=== PATIENT | female | born 1995 | race Caucasian/White ===

== ENCOUNTER 2016-09-08 00:34 | Inpatient (IN) ==
[2016-09-08] MEDS ORDERED: SODIUM CHLORIDE 0.9% 2,000 ML IV STA (00:54)
[2016-09-08] MEDS ORDERED: LORazepam 2 MG/1 ML VIAL IV STA (00:54)
[2016-09-08] MEDS ORDERED: diphenhydrAMINE 50 MG/1 ML VIAL IV STA (00:55)
[2016-09-08 01:08] LABS: Basophils # 0.1 10*3/uL (0.0-0.2); Basophils % 0.4 % (0.0-0.8); Eosinophils % 0.2 % (0.00-10.9); Hematocrit 46.8 VOL% (35.7-47.0); Hemoglobin 16.3 GM/DL (12.0-16.0); Immature Granulocytes % 0.4 %; Immature Granulocytes Absolute 0.05 #; Lymphocytes # 2.8 10*3/uL (1.4-4.0); Lymphocytes % 19.3 % (21.3-54.2); Mean Corpuscular HGB Conc 34.8 GM/DL (32-36); Mean Corpuscular Hemoglobin 29 PG (27-34); Mean Corpuscular Volume 82.1 FL (87-102); Mean Platelet Volume 8.6 FL (9.6-12.0); Monocytes # 0.7 10*3/uL (0.11-0.8); Monocytes % 4.7 % (1.7-12.7); Neutrophils # 10.7 10*3/uL (1.4-7.4); Platelet Count 425 T/CUMM (130-400); Red Cell Distribution Width 12.1 % (9.3-17.3); White Blood Count 14.3 T/CUMM (4-12)
[2016-09-08] MEDS ORDERED: diphenhydrAMINE 50 MG/1 ML VIAL ONE (01:21)
[2016-09-08] MEDS ORDERED: LORazepam 2 MG/1 ML VIAL ONE (01:21)
[2016-09-08 01:22] LABS: Albumin 5.1 G/DL (3.4-5.0); Bilirubin,Total 1.4 MG/DL (0.2-1.0); Calcium 10.4 MG/DL (8.5-10.1); Osmolality,Calculated 282.3 MOS/KG (273-304); Potassium 3.4 MMOL/L (3.5-5.1); Total Protein 9.8 G/DL (6.4-8.3)
[2016-09-08 01:37] LABS: Apearance,Urine CLOUDY (Clear); Bacteria,Urine Many /HPF (Few); Bilirubin,Urine Negative (Negative); Blood, Urine Small mg/dL (Negative); Glucose,Urine (UA) Negative (Negative); Ketones,Urine 20 mg/dL (Negative); Mucus,Urine Many /LPF (Occasional); Nitrite,Urine Positive (Negative); Protein,Urine 100 MG/DL; RBC,Urine 40 /HPF (0-4); Squamous Epithelial Cell,Urine Few /HPF (0-10); Urine Color Amber (Yellow); Urine Specific Gravity 1.024 (1.001-1.035); Urine Urobilinogen < 2.0 EU/DL (0.2-1.0); WBC,Urine 3261 /HPF (0-6)
[2016-09-08] MEDS ORDERED: ZIPRASIDONE 20 MG/1 ML VIAL IM ONE ×2 (02:05→03:10)
[2016-09-08 02:19] LABS: Barbiturates Screen,Urine Negative (Negative); Benzodiazepines Screen,Urine Negative (Negative); Cannabinoid Screen,Urine Positive (Negative); Opiate Screen,Urine Positive (Negative); Phencyclidine Screen,Urine Negative (Negative)
[2016-09-08] MEDS ORDERED: MIDAZOLAM 10 MG/2 ML VIAL ONE ×2 (02:30→04:25)
[2016-09-08] MEDS ORDERED: MIDAZOLAM 10 MG/2 ML VIAL IM STA ×2 (03:11→04:23)
[2016-09-08] MEDS ORDERED: cefTRIAXone 1,000 MG in SODIUM CHLORIDE 0.9% 100 ML IV STA (04:25)
[2016-09-08] MEDS ORDERED: cefTRIAXone 1,000 MG VIAL ONE ×2 (04:29→10:19)
--- NOTE | 2016-09-08 06:22 | Emergency Department Note ---
Sabiha Fletcher Sierra, am scribing for, and in the presence of, Sushma Santos DO 01:12. ITom Catherine, DO, personally performed the services described in this documentation, ascribed by Jania Landis in my presence, and it is both accurate and complete 622 . Arrival - Arrival ED Nursing Triage Note: C/O Generalized abd pain/nausea/vomiting- Onset lastnight. Pt reports that she is a daily heroin user and last used approx 0600 yesterday morning. Pt has very dilated pupils approx 8mm. Pt is hyperventilating and has dry mucous membranes. Pt reports taking [place] that wasn't prescribed to her yesterday as well. Mode of Arrival: Stretcher Limitations: Altered Mental Status, Uncooperative Source: Patient - History of Present Illness Onset (ago): hour(s) Consistency: constant Severity: moderate Severity scale (1-10): 5 Quality: other Date of Last Menstrual Period: "Its been months" <Sushma Santos - Last Filed: 09/08/16 06:18> <Ivan Batres - Last Filed: 09/08/16 07:42> - Arrival Chief Complaint: Nausea/Vomiting/Diarrhea Time Seen by Provider: 09/08/16 00:38 - History of Present Illness HPI Narrative: Pt is a 21 y/o female that was brought to the ED via EMS with c/o abdominal pain that began a few hours ago. Pt has associated sxs of "shaking all over," N/ V, "hard to breathe," woke up "freaking out," and chills. Pt admits she does heroin, dilaudid, xanax, and [place] that she buys off the street. Pt states she administers heroin intravenous daily and when asked where states "anywhere." She agrees with doctor when doctor suggests sxs are a drug withdrawal. Pt reports her last use of any drug was yesterday morning. Pt states she has not used to do not having any available drugs. Pt reports she has been using for "about a year." Pt states her last known menstrual period was "couple months ago " but denies possibility of . Pt reports she does smoke a 1/2 a pack of cigarettes a day. Pt denies previously trying rehab for drug use. Pt denies medical history, medications, or allergies. Pt has a PSHx of appendectomy, tonsillectomy, and adenoidectomy. No other complaints/pain in ED. (Jania Landis) Pt is a 21 y/o female that was brought to the ED via EMS with c/o abdominal pain that began a few hours ago. Pt has associated sxs of "shaking all over," N/ V, "hard to breathe," woke up "freaking out," and chills. Pt admits she does heroin, dilaudid, xanax, and [place] that she buys off the street. Pt states she administers heroin intravenous daily and when asked where states "anywhere." She agrees with doctor when doctor suggests sxs are a drug withdrawal. Pt reports her last use of any drug was yesterday morning. Pt states she has not used to do not having any available drugs. Pt reports she has been using for "about a year." Pt states her last known menstrual period was "couple months ago " but denies possibility of . Pt reports she does smoke a 1/2 a pack of cigarettes a day. Pt denies previously trying rehab for drug use. Pt denies medical history, medications, or allergies. Pt has a PSHx of appendectomy, tonsillectomy, and adenoidectomy. No other complaints/pain in ED. (Sushma Santos) Allergies/Adverse Reactions: Allergies Allergy/AdvReac Type Severity Reaction Status Date / Time No Known Allergies Allergy Verified 09/08/16 00:48 Home Medications: Home Medications Medication Instructions Recorded Confirmed Type No Known Home Medications [No 09/08/16 09/08/16 History Known Home Medications] Review of System - Review of System 12 point system: reviewed and no additional remarkable complaints except as stated - Review of System Constitutional: Present: chills, other ("shaking all over"; "woke up freaking out"). Absent: fever Respiratory: Present: other ("hard to breathe"). Absent: cough Cardiovascular: Absent: chest pain Gastrointestinal: Present: abdominal pain, nausea, vomiting Musculoskeletal: Absent: arm pain, back pain, leg pain, neck pain Skin: Absent: rash Neurological: Absent: headache <Sushma Santos - Last Filed: 09/08/16 06:18> Medical,Surgical,& Family Hx - Medical History Other: History of: Miscellaneous Medical Problems (Drug abuser) - Social History Smoking Status: Never smoker Frequency of Alcohol Use: None Type of Drug Use: Heroin, Prescription Drug Abuse <Sushma Santos - Last Filed: 09/08/16 06:18> Exam - General General appearance: alert, anxious - Head Head exam: Present: atraumatic, normocephalic - Eye Eye exam: Present: EOMI. Absent: PERRL (pupils are dilated to approximately 8 mm) - ENT ENT exam: Present: mucous membranes moist. Absent: mucous membranes dry - Neck Neck exam: Present: full ROM. Absent: tenderness - Chest Chest inspection: Present: symmetric chest wall rise. Absent: tenderness - Respiratory Respiratory exam: Present: normal lung sounds bilaterally, other ( hyperventilating). Absent: respiratory distress - Cardiovascular Cardiovascular exam: Present: regular rate, normal rhythm, normal heart sounds - Abdominal Exam Abdominal exam: Present: soft, tenderness (diffusely tender abdomen). Absent: guarding, rebound - Extremities Exam Extremities exam: Present: full ROM. Absent: tenderness - Back Exam Back exam: Present: full ROM. Absent: tenderness - Neurological Exam Neurological exam: Present: alert, oriented X3, CN II-XII intact. Absent: motor sensory deficit - Psychiatric Psychiatric exam: Present: normal affect, anxious - Skin Skin exam: Present: warm, dry <Sushma Santos - Last Filed: 09/08/16 06:18> Vital Signs: Vital Signs Temperature 99.8 F H 09/08/16 00:34 Pulse Rate 127 H 09/08/16 00:45 Respiratory Rate 16 09/08/16 07:18 Blood Pressure 128/85 09/08/16 00:45 O2 Sat by Pulse Oximetry 100 09/08/16 00:45 Course <Sushma Santos - Last Filed: 09/08/16 06:18> - Consultations Time: 06:41 <Ivan Batres - Last Filed: 09/08/16 07:42> Course Narrative: This is a 21-year-old female who presents into the ER today and some type of drug withdrawal. She states that she does use heroin and other drugs on a daily basis. She reports that she is from [place] she came down to [place] to visit and her friends and family apparently left her. She was found by EMS and brought to the hospital. She stated she called 911 because she was not feeling well. She is aching all over and having nausea and vomiting. Arrival in the ER the patient is obviously on some type of substances. She is able to answer my questions that she is hallucinating and seeing things she is noted to have extremely large pupils. She will cooperate however she has episodes where she becomes combative. History is limited due to her state at this time. Physical exam her vital signs were stable she is afebrile H HEENT exam is normal her neck was supple heart had a regular rate and rhythm lungs are clear in the anterior wiggins. Her pupils are markedly dilated. Her abdomen is rounded soft and nontender. She is complaining of nausea and vomiting. Her neurologic exam she really does not have focal deficits she just appears to be suffering from some type of an overdose at this time. Treatment initially the patient was somewhat cooperative I did start an IV and attempted to hydrate her she received some Ativan and Benadryl. She then became combative and refused to stay in the bed. She was sedated with 10 mg of Geodon and 10 mg of Versed IM. She was sleeping at times. She would wake up and yellow. Her mother had called the ER several times concerned about her and wanting to know what to do. Her toxicology screen was positive for methamphetamines amphetamines marijuana cocaine and opiates. At this time I have turned the patient over to Dr. MAIET Elder. The plan will be to admit the patient for further evaluation and treatment of her drug addiction. (Sushma Santos) - Consultations Consultation #1: Discussed with hospitalist. Patient will be admitted to their service. (Ivan Batres) Procedures - ABG Interpretation ABG Interpretation 1 Interpretation: normal - EJ/Peripheral Line Neck R Consent Obtained: verbal consent Time Out Performed: Yes Skin Cleansed in Sterile Fashion: Yes Size: 20 IV Secured and Dressing Applied: Yes Patient Tolerated Procedure: well - Intubation Time out performed: Yes sedative: Etomidate Mg Given: 20 paralytic: Vecuronium Mg Given: 10 Laryngoscope: fiber optic video scope ET Tube Size: 7.5 ET Tube Uncuffed: No Tube Secured Depth (cm): 23 Tube Secured Location: lips Tube Placement Confirmation: visualized tube passing through cords, equal breath sounds bilaterally, no breath sounds over epigastrium, confirmation detector color change Patient Tolerated Procedure: well Intubation Complications: none <Ivan Batres - Last Filed: 09/08/16 07:42> Results - Labs CBC & BMP: 09/08/16 00:50 09/08/16 00:50 Lab Results: I have reviewed the patients labs <Sushma Santos - Last Filed: 09/08/16 06:18> - Labs CBC & BMP: 09/08/16 00:50 09/08/16 00:50 Lab Results: I have reviewed the patients labs - Diagnostic Findings Procedure: Chest x-ray: image reviewed by me (Endotracheal tube in good position above the jose. No infiltrates, no pleural effusions.) <Ivan Batres - Last Filed: 09/08/16 07:42> - Labs Labs: Laboratory Tests 09/08/16 09/08/16 00:50 00:50 WBC 14.3 H RBC 5.70 H Hgb 16.3 H MCV 82.1 L Plt Count 425 H MPV 8.6 L Neut % (Auto) 75.0 H Lymph % (Auto) 19.3 L Neut # (Auto) 10.7 H Potassium 3.4 L Carbon Dioxide 19 L Anion Gap 19.4 H Creatinine 1.20 H Glucose 117 H Calcium 10.4 H Total Bilirubin 1.40 H Total Protein 9.8 H Albumin 5.1 H Globulin 4.7 H Albumin/Globulin Ratio 1.0 L Laboratory Tests 09/08/16 01:25 Urine Color Cindy Urine Appearance Cloudy Urine pH 5.0 Ur Specific [place] 1.024 Urine Protein 100 Urine Glucose (UA) Negative Urine Ketones 20 Urine Blood Small Urine Nitrate Positive H Urine Bilirubin Negative Urine Urobilinogen < 2.0 H Urine Leukocytes Moderate H Urine RBC 40 Urine WBC 3261 Ur Squamous Epith Cells Few Urine Bacteria Many Urine Mucus Many Urine Test Negative Laboratory Tests 09/08/16 01:25 Urine Opiates Screen Positive H Ur Barbiturates Screen Negative Ur Phencyclidine Scrn Negative U Amphetamine/Methamph Positive H U Benzodiazepines Scrn Negative U Cocaine Metab Screen Positive H U Cannabinoids Screen Positive H (Jania Landis) Laboratory Tests 09/08/16 09/08/16 00:50 00:50 WBC 14.3 H RBC 5.70 H Hgb 16.3 H MCV 82.1 L Plt Count 425 H MPV 8.6 L Neut % (Auto) 75.0 H Lymph % (Auto) 19.3 L Neut # (Auto) 10.7 H Potassium 3.4 L Carbon Dioxide 19 L Anion Gap 19.4 H Creatinine 1.20 H Glucose 117 H Calcium 10.4 H Total Bilirubin 1.40 H Total Protein 9.8 H Albumin 5.1 H Globulin 4.7 H Albumin/Globulin Ratio 1.0 L Laboratory Tests 09/08/16 01:25 Urine Color Cindy Urine Appearance Cloudy Urine pH 5.0 Ur Specific [place] 1.024 Urine Protein 100 Urine Glucose (UA) Negative Urine Ketones 20 Urine Blood Small Urine Nitrate Positive H Urine Bilirubin Negative Urine Urobilinogen < 2.0 H Urine Leukocytes Moderate H Urine RBC 40 Urine WBC 3261 Ur Squamous Epith Cells Few Urine Bacteria Many Urine Mucus Many Urine Test Negative Laboratory Tests 09/08/16 01:25 Urine Opiates Screen Positive H Ur Barbiturates Screen Negative Ur Phencyclidine Scrn Negative U Amphetamine/Methamph Positive H U Benzodiazepines Scrn Negative U Cocaine Metab Screen Positive H U Cannabinoids Screen Positive H (Sushma Santos) Laboratory Tests 09/08/16 06:40 ABG pH 7.408 ABG pCO2 31.8 L ABG pO2 303.0 H ABG HCO3 21.6 ABG Total CO2 17.2 L ABG O2 Saturation 99.8 ABG Base Excess -3.5 L FiO2 60.00 (Ivan Batres) Disposition <Sushma Santos - Last Filed: 09/08/16 06:18> <Ivan Batres - Last Filed: 09/08/16 07:42> Clinical Impression: Drug abuse and dependence, Polysubstance overdose, Urinary tract infection Disposition: Still a Patient Condition: Guarded
[2016-09-08] MEDS ORDERED: VECURONIUM 10 MG VIAL IV ONE ×6 (06:28→12:23)
[2016-09-08] MEDS ORDERED: ETOMIDATE 20 MG/10 ML VIAL IV ONE ×2 (06:28→06:30)
[2016-09-08] MEDS ORDERED: SUCCINYLCHOLINE 200 MG/10 ML VIAL ONE (06:29)
[2016-09-08] MEDS ORDERED: MIDAZOLAM 2 MG/2 ML VIAL IV STA ×2 (06:30→07:26)
[2016-09-08] MEDS ORDERED: VECURONIUM 10 MG VIAL IV STA ×4 (06:44→10:52)
[2016-09-08] MEDS ORDERED: SUCCINYLCHOLINE 200 MG/10 ML VIAL IV STA (06:44)
[2016-09-08 06:47] LABS: ABG Base Excess -3.5 MMOL/L (-2.5-2.5); ABG HCO3 21.6 MMOL/L (20-26); ABG Oxygen Saturation 99.8 % (95-100); ABG PCO2 31.8 MM HG (35-48); ABG PH 7.408 (7.35-7.45); ABG TCO2 17.2 MMOL/L (23-27); Allen Test Positive; Pt O2 Delivery Device Ventilator
--- NOTE | 2016-09-08 07:02 | XRay Report ---
XR chest 1V portable Indication: Intubation Comparison: None available Findings: The heart and mediastinum are normal in size and configuration. Endotracheal tube is present with tip at the clavicle level. The pulmonary vascularity is normal in caliber. No lung infiltrates, effusions, pneumothorax or other abnormality is demonstrated. Impression: Tube position appears within normal limits. No other significant findings seen. PROCEDURE INTERPRETED AT [facility] DEPARTMENT OF RADIOLOGY Final Report Signed by: Dr. John Forbes
--- NOTE | 2016-09-08 07:03 | CT Report ---
CT brain Indication: Agitation Comparison: None available Technique: Axial CT imaging of the brain is performed without contrast with 3 mm increments. Findings: No evidence of hemorrhage, mass mass effect midline shift or acute infarct seen. The brain parenchyma attenuation and differentiation appears within normal limits. The ventricles and cisterns are normal in caliber. No cranial or skull base abnormality is identified. Impression: No evidence of abnormality demonstrated. This CT exam was performed using one or more the following dose reduction techniques: Automated exposure control, adjustment of the MA and/or KV according to patient size, or use of iterative reconstruction technique. PROCEDURE INTERPRETED AT [facility] DEPARTMENT OF RADIOLOGY Final Report Signed by: Dr. John Forbes
[2016-09-08] MEDS ORDERED: MIDAZOLAM 2 MG/2 ML VIAL ONE (07:23)
[2016-09-08] MEDS: MIDAZOLAM 100 MG in SODIUM CHLORIDE 0.9% 80 ML IV SCH (07:36)
[2016-09-08] MEDS ORDERED: SODIUM CHLORIDE 0.9% 500 ML IV STA (07:37)
--- NOTE | 2016-09-08 08:57 | Hospitalist History & Physical ---
<Alicia Hamlin - Last Filed: 09/08/16 08:54> Assessment and Plan - Time spent with patient Time spent with patient: Greater than 30 minutes (1) Drug abuse and dependence Status: Acute Assessment and plan: 21-year-old white female admitted with polysubstance overdose and urinary tract infection. Patient is now sedated on the vent. She is being admitted to ICU under the care of Dr. Becerril. We will also consult pulmonary for ventilator management. This is all been discussed with Dr. Becerril. Further recommendations to follow. Polysubstance abuse--admit to ICU, and monitor for withdrawal. We will start banana bag IV drip. We will go ahead and get case management to start working on possible alliance when patient is awake and alert. Urinary tract infection--start Rocephin Current Visit: Yes (2) Polysubstance overdose Status: Acute Current Visit: Yes (3) Urinary tract infection Status: Acute Current Visit: Yes History of Present Illness Chief complaint: Abdominal pain, weakness, vomiting History of present illness: Ms. Rizzo is a 21 year old female with history of polysubstance abuse brought to the ED by ambulance with complaints of not feeling well. Patient was sedated and on the vent at the time of admission so her history was taken from ER physician's notes. Patient reports that she is from [place] and came down to [place] to visit friends and family. She is a daily drug user of heroin , Xanax, Dilaudid, and [place] that she buys off the street. Patient stated that she has been using a year and her last drug use was yesterday at 6 AM. The ED physician feels that her symptoms were symptoms of withdrawal and patient agreed. She had abdominal pain, nausea and vomiting, shortness of breath, she was shaking all over and "freaking out". Patient has no reported medical history, medications, or allergies. She has had an appendectomy, tonsillectomy and adenoidectomy. Patient's symptoms continue to escalate until she became combative in the ED physician intubated her to protect her airway, the patient, and the staff. Upon exam patient is sedated and on the vent. Her pupils are sluggish, chest is clear, she has noted track reza on bilateral upper extremities and multiple tattoos on her extremities and torso. Her toxicology screen shows positive for urine opiates, methamphetamines, cocaine, and marijuana. She is also showing a urinary tract infection that is positive for nitrates with moderate leukocytes. She is mildly elevated white count of 14.3, her potassium is low at 3.4, creatinine 1.2, total bilirubin of 1.4 within normal remainder LFTs. After discussion with ED physician Dr. Batres and hospital Dr. Becerril, patient will be admitted to ICU. Home Medications Medication Instructions Recorded Confirmed Type No Known Home Medications [No 09/08/16 09/08/16 History Known Home Medications] Allergies Allergy/AdvReac Type Severity Reaction Status Date / Time No Known Allergies Allergy Verified 09/08/16 00:48 Medical,Surgical,& Family Hx - Medical History Cardio: No history of: Cerebrovascular Disease Neurology: No history of: Cerebrovascular Accident Endocrine: No history of: Diabetes Mellitus (IDDM) Gastrointestinal: No history of: Liver Problems Other: History of: Miscellaneous Medical Problems (Drug abuser) - Surgical History HEENT Surgeries: Surgical HX of: Tonsilectomy & Adenoidectomy Abdominal Surgeries: Surgical HX of: Appendectomy - Family History Additional Family History: Unable to obtain due to patient being sedated on the vent - Social History Smoking Status: Current every day smoker Have you smoked in the last 12 months: Yes Frequency of Alcohol Use: None Type of Drug Use: Heroin, Methamphetamine, Prescription Drug Abuse Marital Status: Unknown Lives With:: Alone Functional capacity: independent ambulation ROS unobtainable: due to endotracheal tube Exam - Constitutional Vitals: Period Temp Pulse Resp BP Sys/[place] Pulse Ox Last 24 Hr 99.8 F-99.8 F 127-130 12-26 128-130/85-88 100-100 Exam: Constitutional System: No distress. [No] tremulousness. Head: Normocephalic, atraumatic. Ears, Nose and Throat System: No evidence of Otitis or Mastoiditis. No epistaxis or discharge Eyes System: Pupils equal, round, and sluggish. Neck: Supple, without adenopathy, [No] jugular venous distention. No thyromegaly , neck mass, or prior surgery apparent. Respiratory System: Chest [clear] to auscultation. Cardiovascular System: Heart with tachycardia rate and rhythm. [No] murmur. GI System: Abdomen [soft]. [Normo]active bowel sounds present. Musculoskeletal System: limbs with [no] pedal edema. [Full] distal pulses. Neurological System: unable to obtain due to sedated on the vent Psychiatric System: Unable to obtain Results - Labs CBC & BMP: 09/08/16 00:50 09/08/16 00:50 Lab Results: I have reviewed the past 24 hour labs - EKG EKG shows: tachycardia, sinus rhythm - Diagnostic Findings Procedure: CT - chest: report reviewed by me (No acute process), CT: report reviewed by me (No acute process) <He Becerril - Last Filed: 09/08/16 16:49> Assessment and Plan - Time spent with patient Time spent with patient: Less than 30 minutes History of Present Illness History of present illness: Patient seen and examined along with SANTY Hamlin, agree with history, assessment and plan as documented. 21 y/o WF with drug overdose vs withdrawal. She was intubated in the ED for airway protection. UDS positive for opiates, amphetamines, cocaine and cannabinoids. Soon after arrival to the CCU, patient coughed and self extubated. She is breathing comfortably with the non- rebreather not attached. She has vomited x2. Will monitor closely. If become concerned for her protecting her airway she will have to be reintubated. Exam - Constitutional Vitals: Period Temp Pulse Resp BP Sys/[place] Pulse Ox Last 24 Hr 122 12-19 132/101 100 Results - Labs CBC & BMP: 09/08/16 00:50 09/08/16 00:50
[2016-09-08] MEDS ORDERED: NICOTINE 21 MG/24 HR PATCH TRANSDERM PRN (09:16)
[2016-09-08] MEDS ORDERED: ACETAMINOPHEN 325 MG TABLET PO PRN (09:16)
[2016-09-08] MEDS ORDERED: DOCUSATE SODIUM 100 MG CAPSULE PO PRN (09:16)
[2016-09-08] MEDS ORDERED: diphenhydrAMINE CAP 25 MG CAPSULE PO PRN (09:16)
[2016-09-08] MEDS ORDERED: SODIUM CHLORIDE 0.9% 100 ML IV ONE (10:19)
[2016-09-08] MEDS ORDERED: ENOXAPARIN 30 MG/0.3 ML SYRINGE ONE (10:19)
[2016-09-08] MEDS: THIAMINE INJ 100 MG, FOLIC ACID INJ 1 MG, MULTIVITAMIN INJ 10 ML in SODIUM CHLORIDE 0.9... IV SCH (10:36)
[2016-09-08] MEDS: cefTRIAXone 1,000 MG in SODIUM CHLORIDE 0.9% 100 ML IV SCH (10:36)
[2016-09-08] MEDS: ENOXAPARIN 30 MG/0.3 ML SYRINGE SUBCUT SCH (10:37)
[2016-09-08] MEDS: PANTOPRAZOLE 40 MG TABLET PO SCH (10:37)
[2016-09-08] MEDS: SODIUM CHLORIDE 0.9% 1,000 ML IV SCH ×2 (11:10→21:28)
[2016-09-08] MEDS ORDERED: PROMETHAZINE INJ 12.5 MG in SODIUM CHLORIDE 0.9% 50 ML IV PRN (15:18)
[2016-09-08] MEDS: LORazepam 2 MG/1 ML VIAL IV PRN ×2 (15:43→19:56)
--- NOTE | 2016-09-08 17:44 | Pulmonology Consult Note ---
History of Present Illness Chief complaint: Ventilator management History of present illness: Ms. Rizzo is a 21 year old white female who is extubated and doing well. We will sign off. Reconsult as needed Home Medications Medication Instructions Recorded Confirmed Type No Known Home Medications [No 09/08/16 09/08/16 History Known Home Medications] Allergies Allergy/AdvReac Type Severity Reaction Status Date / Time No Known Allergies Allergy Verified 09/08/16 00:48 Exam (Pulmonay) H&P - Constitutional Vitals: Period Temp Pulse Resp BP Sys/[place] Pulse Ox Last 24 Hr 122 12-19 132/101 100 Medical,Surgical,& Family Hx - Medical History Cardio: No history of: Cerebrovascular Disease Neurology: No history of: Cerebrovascular Accident Endocrine: No history of: Diabetes Mellitus (IDDM) Gastrointestinal: No history of: Liver Problems Other: History of: Miscellaneous Medical Problems (Drug abuser) - Surgical History HEENT Surgeries: Surgical HX of: Tonsilectomy & Adenoidectomy Abdominal Surgeries: Surgical HX of: Appendectomy - Social History Smoking Status: Current every day smoker Frequency of Alcohol Use: None Type of Drug Use: Heroin, Methamphetamine, Prescription Drug Abuse Results - Labs CBC & BMP: 09/08/16 00:50 09/08/16 00:50
[2016-09-08] MEDS: ONDANSETRON 4 MG/2 ML VIAL IV PRN (19:52)
[2016-09-08] MEDS: ZIPRASIDONE 20 MG/1 ML VIAL IM PRN (22:46)
[2016-09-09] MEDS: SODIUM CHLORIDE 0.9% 1,000 ML IV SCH ×2 (01:52→06:24)
[2016-09-09] MEDS: LORazepam 2 MG/1 ML VIAL IV PRN ×4 (02:37→22:02)
[2016-09-09] MEDS: ONDANSETRON 4 MG/2 ML VIAL IV PRN (03:15)
[2016-09-09 04:46] LABS: Basophils % 0.2 % (0.0-0.8); Eosinophils % 0.1 % (0.00-10.9); Hematocrit 39.5 VOL% (35.7-47.0); Hemoglobin 13.2 GM/DL (12.0-16.0); Immature Granulocytes % 0.4 %; Immature Granulocytes Absolute 0.06 #; Lymphocytes # 2.4 10*3/uL (1.4-4.0); Lymphocytes % 15.1 % (21.3-54.2); Mean Corpuscular HGB Conc 33.4 GM/DL (32-36); Mean Corpuscular Hemoglobin 28 PG (27-34); Mean Corpuscular Volume 85.1 FL (87-102); Mean Platelet Volume 8.8 FL (9.6-12.0); Monocytes % 6.1 % (1.7-12.7); Neutrophils # 12.4 10*3/uL (1.4-7.4); Neutrophils % 78.1 % (38.7-73.9); Platelet Count 266 T/CUMM (130-400); Red Blood Count 4.64 MC/CUMM (3.8-5.5); Red Cell Distribution Width 12.5 % (9.3-17.3); White Blood Count 15.8 T/CUMM (4-12)
[2016-09-09 05:17] LABS: Albumin 3.6 G/DL (3.4-5.0); Bilirubin,Total 1.4 MG/DL (0.2-1.0); Calcium 8.5 MG/DL (8.5-10.1); Magnesium 2.4 MG/DL (1.8-2.4); Osmolality,Calculated 286.7 MOS/KG (273-304); Potassium 3.6 MMOL/L (3.5-5.1); Total Protein 7.6 G/DL (6.4-8.3)
[2016-09-09] MEDS: MIDAZOLAM 100 MG in SODIUM CHLORIDE 0.9% 80 ML IV SCH (06:01)
[2016-09-09] MEDS: ZIPRASIDONE 20 MG/1 ML VIAL IM PRN (06:20)
--- NOTE | 2016-09-09 07:31 | XRay Report ---
XR chest 1V portable Indication: Ventilator patient Comparison: 08 September 2016 Findings: The heart and mediastinum are normal in size and configuration. Endotracheal tube is been removed. NG tube appears in good position. The pulmonary vascularity is normal in caliber. No lung infiltrates, effusions, pneumothorax or other abnormality is demonstrated. Impression: Removal of endotracheal tube. NG tube appears in good position. PROCEDURE INTERPRETED AT [facility] DEPARTMENT OF RADIOLOGY Final Report Signed by: Dr. John Forbes
[2016-09-09] MEDS: cefTRIAXone 1,000 MG in SODIUM CHLORIDE 0.9% 100 ML IV SCH (12:43)
--- NOTE | 2016-09-09 12:45 | Hospitalist Progress Note ---
Assessment and Plan (1) Drug abuse and dependence Status: Acute Current Visit: Yes (2) Polysubstance overdose Status: Acute Current Visit: Yes (3) Urinary tract infection Status: Acute Current Visit: Yes Hospitalist: Subjective Interval history: No acute events overnight. Patient awake and alert. Still has NG tube with some output. [facility] consulted, patient refuses treatment with them. Febrile this am. Still has leukocytosis. Treating UTI with rocephin. Possible discharge tomorrow. Exam - Constitutional Vitals: Period Temp Pulse Resp BP Sys/[place] Pulse Ox Last 24 Hr 99.1 F-101.4 F 96-140 14-31 120-132/64-91 95-100 General appearance: normal weight - Head Head exam: Present: normocephalic, atraumatic - Eye Eye exam: Present: EOMI Pupils: Present: MADI - ENT ENT exam: Present: normal exam - Neck Neck exam: Present: normal inspection - Respiratory Respiratory exam: Present: clear to auscultation bilaterally. Absent: rhonchi, wheezes - Cardiovascular Cardiovascular exam: Present: regular rate and rhythm - GI/Abdominal GI/Abdominal exam: Present: normal bowel sounds, soft. Absent: tenderness, rebound - Extremities Exam Extremities exam: Present: normal inspection - Back Exam Back exam: Present: normal inspection - Neurological Exam Neurological exam: Present: alert, oriented X3 - Psychiatric Psychiatric exam: Present: normal affect, normal mood - Skin Skin exam: Present: normal color, warm, intact Results - Labs CBC & BMP: 09/09/16 04:17 09/09/16 04:17
[2016-09-09] MEDS: ENOXAPARIN 30 MG/0.3 ML SYRINGE SUBCUT SCH (14:07)
[2016-09-09] MEDS: PANTOPRAZOLE 40 MG TABLET PO SCH (14:07)
[2016-09-10] MEDS: THIAMINE INJ 100 MG, FOLIC ACID INJ 1 MG, MULTIVITAMIN INJ 10 ML in SODIUM CHLORIDE 0.9... IV SCH ×2 (02:20→09:21)
[2016-09-10] MEDS: LORazepam 2 MG/1 ML VIAL IV PRN (03:18)
[2016-09-10 06:41] LABS: Basophils % 0.3 % (0.0-0.8); Eosinophils # 0.3 10*3/uL (0.0-0.87); Eosinophils % 2.5 % (0.00-10.9); Hemoglobin 12.2 GM/DL (12.0-16.0); Immature Granulocytes % 0.3 %; Immature Granulocytes Absolute 0.04 #; Lymphocytes # 3.1 10*3/uL (1.4-4.0); Lymphocytes % 25.5 % (21.3-54.2); Mean Corpuscular HGB Conc 33.9 GM/DL (32-36); Mean Corpuscular Hemoglobin 29 PG (27-34); Mean Corpuscular Volume 85.3 FL (87-102); Mean Platelet Volume 8.5 FL (9.6-12.0); Monocytes # 0.6 10*3/uL (0.11-0.8); Neutrophils % 66.4 % (38.7-73.9); Platelet Count 249 T/CUMM (130-400); Red Blood Count 4.22 MC/CUMM (3.8-5.5); White Blood Count 12.1 T/CUMM (4-12)
[2016-09-10] MEDS: SODIUM CHLORIDE 0.9% 1,000 ML IV SCH (08:24)
[2016-09-10] MEDS: PANTOPRAZOLE 40 MG TABLET PO SCH (08:37)
[2016-09-10] MEDS: cefTRIAXone 1,000 MG in SODIUM CHLORIDE 0.9% 100 ML IV SCH (09:11)
[2016-09-10] MEDS ORDERED: ENOXAPARIN 40 MG/0.4 ML SYRINGE SUBCUT SCH (09:30)
--- NOTE | 2016-09-10 09:39 | Discharge Summary ---
Hospital Course - Hospital Course Hospital Course: Ms. Rizzo is a 21 year old female with history of polysubstance abuse brought to the ED by ambulance with complaints of not feeling well. Patient was sedated and on the vent at the time of admission so her history was taken from ER physician's notes. Patient reported that she is from [place] and came down to [place] to visit friends and family. She is a daily drug user of heroin , Xanax, Dilaudid, and Jal that she buys off the street. Patient stated that she has been using a year and her last drug use was the morning prior to admission. She had abdominal pain, nausea and vomiting, shortness of breath, she was shaking all over and "freaking out". Patient had no reported medical history, medications, or allergies. Patient's symptoms continued to escalate until she became combative in the ED, intubated her to protect her airway, the patient, and the staff. Her toxicology screen shows positive for urine opiates, methamphetamines, cocaine, and marijuana. She also had a urinary tract infection. She has mildly elevated white count of 14.3, her potassium is low at 3.4, creatinine 1.2, total bilirubin of 1.4 within normal remainder LFTs. She was admitted to the hospitalist service to the ICU for respiratory failure and drug overdose. She self extubated on arrival to the ICU. She was lethargic but awake and breathing comfortably. She has continued to do well. [facility] was consulted, she chose to not get help from them. She denies any suicidal thoughts or desire to harm herself. She has now reached maximum benefit of inpatient stay and will be discharged home. - Time spent with patient Time with patient DS: Less than 30 minutes Diagnosis - Discharge Diagnosis (1) Drug abuse and dependence Status: Chronic (2) Polysubstance overdose Status: Resolved (3) Urinary tract infection Status: Resolved Discharge Plan - Discharge Data Condition at Discharge: Stable Discharge Diet: advance to your usual diet Activity: resume usual activities as tolerated Hygiene: no restrictions Weight Bearing at Discharge: full weight bearing Driving: no restrictions Contact your physician if you experience:: fever over 101 - Discharge Medications New Ciprofloxacin Tab [Cipro Tab] 500 mg PO BID #4 tablet - Follow Up or Referral - Forms/Instructions Exam - Constitutional Vitals: Period Temp Pulse Resp BP Sys/[place] Pulse Ox Last 24 Hr 96.4 F-97.8 F 100-125 19-20 105-121/55-71 96-99 General appearance: normal weight - Head Head exam: Present: normocephalic, atraumatic - Eye Eye exam: Present: EOMI Pupils: Present: MADI - ENT ENT exam: Present: normal exam - Neck Neck exam: Present: normal inspection - Respiratory Respiratory exam: Present: clear to auscultation bilaterally. Absent: rhonchi, wheezes - Cardiovascular Cardiovascular exam: Present: regular rate and rhythm - GI/Abdominal GI/Abdominal exam: Present: normal bowel sounds, soft. Absent: tenderness, rebound - Extremities Exam Extremities exam: Present: normal inspection - Back Exam Back exam: Present: normal inspection - Neurological Exam Neurological exam: Present: alert, oriented X3 - Psychiatric Psychiatric exam: Present: normal affect, normal mood - Skin Skin exam: Present: warm, intact Discharge Results Procedures and tests throughout hospitalization: Pending Orders 09/08/16 13:45 MRSA Surveillence, Inf Control Routine Labs on day of discharge: Labs from last 24 hours 09/10/16 06:31 WBC 12.1 H RBC 4.22 Hgb 12.2 Hct 36.0 MCV 85.3 L MCH 29 MCHC 33.9 RDW 12.0 Plt Count 249 MPV 8.5 L Neut % (Auto) 66.4 Lymph % (Auto) 25.5 [place] % (Auto) 5.0 Eos % (Auto) 2.5 Baso % (Auto) 0.3 Neut # (Auto) 8.0 H Lymph # (Auto) 3.1 [place] # (Auto) 0.6 Eos # (Auto) 0.3 Baso # (Auto) 0.0 Immature Gran % 0.3 Nucleated RBC % 0.0 Immature Gran # 0.04 Nucleated RBCs # 0.00 Preliminary micro results at discharge 09/08/16 Unknown Urine Culture - Preliminary Urine,Voided Gram Negative Rods DS: Provider Date of admission: 09/08/16 07:22 Primary care physician: . No PCP Attending physician on admission: He Becerril MD Consults: 09/08/16 09:16 Consult to Physician [CONS] Routine Comment: vent mgt Consulting Provider: [place] Falcon When should Consulting Provider be notified: Now 09/08/16 09:19 Consult to Case Mgmt/Social Srvs [CONS] Routine Reason for Case Mgmt/Social Srvs: Psychiatric Management 09/08/16 11:56 Consult to Pharmacy [CONS] Routine Reason for Pharmacy Consult: Adjust Meds Renal Funct 09/08/16 19:09 Consult to Dietitian [CONS] Routine Reason for Dietitian: Other Discharging clinician: He Becerril MD
[2016-09-10 10:23] VITALS: BP 125/63
== END 2016-09-10 10:20 | DRG 918 ==
LOC: N.ED 00:34 → N.EDINP 07:22 → N.CC 11:29 → N.4E 09-09 15:06
PROVIDERS: ADMIT Internal Medicine; ATTEND Internal Medicine